=== PATIENT | female | born 1960 | race Caucasian/White ===

== ENCOUNTER 2020-01-18 12:51 | Emergency (ER) | payer BC, OTHER ==
--- NOTE | 2020-01-18 13:08 | ED.PDOC ---
History of Present Illness - General Chief Complaint: Abdominal Pain Stated Complaint: right lower abdominal pain Time Seen by Provider: 01/18/20 13:03 - History of Present Illness Initial Comments: 59 yo otherwise healthy female was transferred from [facility] ED after she was found to have a possibly strangulated ventral hernia on the left. Patient has been having several months of on and off abdominal pain. Describes it suprapubic. Has been treated for UTI, but pain persisted. Last night had a fever 102. + nausea, no emesis or diarrhea. no black or bloody bm. Was transferred her for possible surgery. Blood work showed mild thormbocytopenia 133, otherwise CBC unremarkable. CMP unremarkable. She got 250 ml bolus. patient has hx of hysterectomy, . Review of Systems - Review of Systems Constitutional: States: fever. Denies: malaise, weakness EENTM: Denies: blurred vision Respiratory: Denies: cough, orthopnea, short of breath Cardiology: Denies: chest pain, palpitations, syncope Gastrointestinal/Abdominal: States: abdominal pain, nausea. Denies: constipation, diarrhea, vomiting Genitourinary: Denies: discharge, dysuria, frequency, hematuria, pain Musculoskeletal: Denies: back pain, joint pain, muscle pain, muscle stiffness Neurological: Denies: headache, numbness Hematologic/Lymphatic: Denies: anemia, blood clots, easy bleeding Past Medical History (General) - Patient Medical History Hx Cardiac Disorders: No Hx Congestive Heart Failure: No Hx Hypertension: No Hx Diabetes: No Other Surgeries:: hysterectomy, c- section x1 Family Medical History - Family History Mother Family History: Unknown Physical Exam - Physical Exam General Appearance: Alert, Comfortable, No apparent distress Eyes, Ears, Nose, Throat Exam: PERRL/EOMI, normal ENT inspection Neck: non-tender, full range of motion, supple, normal inspection, carotid bruit Respiratory: chest non-tender, lungs clear, normal breath sounds, no respiratory distress, no accessory muscle use Cardiovascular/Chest: normal peripheral pulses, regular rate, rhythm, no edema, no gallop, no JVD, no murmur Peripheral Pulses: 2+ Gastrointestinal/Abdominal: normal bowel sounds, non tender, soft, no organomegaly, no pulsatile mass - no rebound or gaurding, negative cornejo, no pain at [place] Rectal Exam: deferred Back Exam: normal inspection, no CVA tenderness, no vertebral tenderness Extremity: normal range of motion, non-tender, normal inspection, no pedal edema, no calf tenderness 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 Morris is at bedside. CT shows mild evidence of inflammation around fat containing hernia on LLQ. Pain is more RLQ. no evidence of appendicits. UA unremarkable. Bloodwork unremarkable. She is afebrile here. Declines anything for pain at this time. Takes phenergan at home for n ausea. VSS remain stable, she remains afebrile. No acute distress. 01/18/[address] Morris review image, does not feel there is evidence of strangulation at this time. recommend follow up as outpatient. The data reviewed when caring for this patient included: nurse notes, prior er records, etc. The history and assessments from nurses notes were reviewed and considered, and the patient's home medication list was also reviewed and considered. My assessment and the results of testing completed here in the ED were discussed with the patient/family. All questions were answered, and they express understanding of my assessment and the plan. They have been instructed to return if their symptoms worsen, and have been asked to follow up with their primary care physician to recheck today's presenting complaint. Abdominal warnings, including early appendicitis have been given. Reasons to return include but not limited to fever, nausea, vomiting, bloody or black bowel movements, dehydratio n, worsening pain or as needed. patient was discharged home in stable condition. - Consult/PCP Time Called: 13:08 Consult/PCP: Dr. Morris Departure - Departure Clinical Impression: Hernia of abdominal cavity Abdominal pain Qualifiers: Abdominal location: lower abdomen, unspecified Qualified Code(s): R10.30 - Lower abdominal pain, unspecified ICD-10 Supporting Text: Elevated blood pressure without the diagnosis of HTN Disposition: Discharge to Home or Self Care Condition: Good Departure Forms: ED Discharge - Pt. Copy, Patient Portal Self Enrollment Instructions: DI for Abdominal Pain-Adult, Acute Abdomen (Belly Pain), Adult (DC), Abdominal Hernia (DC) Referrals: ELIZABETH PENN [Primary Care Provider] - 1-5 Days Home Medications: Ambulatory Orders NK 01/18/20 Additional Instructions: Finish the remaining 5 days of your macrobid antibiotic. 100 mg twice a day for 5 days. Follow up with Dr. Morris. Return if symptoms worsen
[2020-01-18] MEDS ORDERED: MORPHINE SULFATE INJ 10 MG/ML VIAL IV ONE (13:56)
[2020-01-18] MEDS ORDERED: ONDANSETRON INJ 4 MG/2 ML VIAL IV ONE (13:56)
[2020-01-18 16:24] VITALS: O2SAT 98
[2020-01-18 17:21] VITALS: BP 147/79; TEMP 97.9
== END 2020-01-18 17:21 | disposition home or self-care (01) ==
LOC: ER 12:51
DX: K46.9 Unspecified abdominal hernia without obstruction or gangrene (principal); R10.31 Right lower quadrant pain; R11.0 Nausea; Z90.710 Acquired absence of both cervix and uterus
CPT/HCPCS: J2270; J2405